=== PATIENT | male | born 1960 | race Asian ===

== ENCOUNTER 2017-08-15 02:33 | Emergency (ER) | payer SELFPAY ==
[~2017-08-15] VITALS: Ht 154.9 cm; Wt 50.0 kg
[2017-08-15] MEDS ORDERED: ALBU8HFA IH (02:40)
[2017-08-15 04:55] VITALS: BP 133/85
== END 2017-08-15 04:57 | disposition home or self-care (01) ==
LOC: EMS 02:36
DX: J45.909 Unspecified asthma, uncomplicated (principal); F41.9 Anxiety disorder, unspecified; Z88.0 Allergy status to penicillin; Z88.5 Allergy status to narcotic agent; Z79.899 Other long term (current) drug therapy
CPT/HCPCS: 99283